=== PATIENT | male | born 1955 | race Caucasian/White ===

== ENCOUNTER 2017-12-07 08:52 | Day surgery (SDC) | payer BC, OTHER ==
[2017-12-01 15:49] VITALS: BMI 25.0
[~2017-12-07 08:52] MED LIST: LACTATED RINGERS 1,000 ML IV SCH
[2017-12-07 09:16] VITALS: RESP 16; TEMP 97.9
[2017-12-07] MEDS ORDERED: LIDOCAINE 1% 20 ML VIAL (10MG/ML) FOR IV START INTRADERMA ONE (09:22)
[2017-12-07] MEDS ORDERED: LIDOCAINE 1% INJ 10MG/ML (20 ML MDV) ONE (10:05)
[2017-12-07] MEDS ORDERED: PROPOFOL 10 MG/ML 20 ML VIAL IV ONE (10:05)
--- NOTE | 2017-12-07 10:33 | P.PCN ---
Date of Procedure: 12/07/17 Procedure(s) Performed: Procedure: Total colonoscopy. Preoperative diagnosis: Screening for neoplasia. Postoperative diagnosis: Sigmoid diverticulosis with no evidence of acute diverticulitis, strictures, polyps or cancer. Preparation: HalfLytely prep. Sedation: Was provided by anesthesia. Brief clinical history: The patient is 62-year-old male who is scheduled for this evaluation for screening for neoplasia because of history of polyps in addition to age as risk factor. The patient's prior exam around 7 years ago. He has no abdominal complaints, bleeding or anemia. Procedure: With the patient on his left lateral decubitus position and after informed consent and adequate sedation, the perianal area was inspected and it did not show any fissures or fistulas. There were no masses felt on digital rectal examination. The Olympus CFQ 160L videocolonoscope was then inserted in the rectum in the usual fashion and advanced to the cecum. There were several diverticular orifices noted scattered in the sigmoid with no evidence of acute diverticulitis or strictures. No polyps or tumors were seen. I retroflexed the endoscope in the rectum before the endoscope was withdrawn. The patient tolerated the procedure well. Plan: The patient was reassured. Discussed dietary measures. He will follow up with you as planned and I recommended repeat exam in 5 years.
[2017-12-07 10:52] VITALS: BP 133/82; PULSE 53
== END 2017-12-07 11:05 | disposition home or self-care (01) ==
LOC: ORWHC2ENDO 08:52
DX: Z12.11 Encounter for screening for malignant neoplasm of colon (principal); K57.30 Diverticulosis of large intestine without perforation or abscess without bleeding; Z86.010 Personal history of colon polyps; K21.9 Gastro-esophageal reflux disease without esophagitis; I10 Essential (primary) hypertension; E78.5 Hyperlipidemia, unspecified; Z72.0 Tobacco use; Z79.899 Other long term (current) drug therapy
CPT/HCPCS: J2001; J2704; G0105; 45378

== ENCOUNTER → 2023-02-07 | Outpatient (CLI) | payer MEDICARE ==
--- NOTE | 2023-02-09 12:57 | MR ---
EXAMINATION TYPE: MR shoulder RT wo con DATE OF EXAM: 02/07/2023 COMPARISON: Outside right shoulder x-ray January 27, 2023 HISTORY: Right shoulder pain with difficulty raising arm overhead since April TECHNIQUE: Multiplanar, multisequence imaging of the right shoulder is performed without contrast. FINDINGS: Rotator Cuff: Slight increased signal in the distal supraspinatus tendon with some adjacent fluid. Le ss prominent increased signal in the distal infraspinatus tendon. Intact subscapularis tendon. Rotato r cuff muscle bulk is preserved. Acromioclavicular Joint: Moderate to severe narrowing with moderate capsular hypertrophy. Loss of und erlying fat plane sagittal image 14 and coronal image 16. Mild spurring. Glenohumeral Joint: Small to moderate-sized joint effusion. No significant spurring. Bony projection from the anterior medial aspect of the humeral head. Labrum: The labrum appears grossly intact given limitation of non-arthrogram study. Biceps Tendon: The long head of biceps is in normal location within bicipital groove. Bone marrow signal: Tiny subchondral cystic change involving the medial humeral head and the superior lateral humeral head. Other: No additional significant abnormality is appreciated. IMPRESSION: 1. Tendinosis of the supraspinatus and to lesser degree the infraspinatus tendons. No significant tea ring. 2. AC joint arthropathy with suggestion of underlying impingement. Correlate clinically.
== END | disposition home or self-care (01) ==
LOC: RADMRIMAIN 19:05
PROVIDERS: ATTEND Orthopaedic Surgery
DX: M19.011 Primary osteoarthritis, right shoulder (principal); M67.813 Other specified disorders of tendon, right shoulder

== ENCOUNTER → 2023-03-06 | Outpatient (CLI) | payer MEDICARE ==
[2023-03-06 15:51] LABS: Anion Gap 16.6 mmol/L (4.00-12.00); Carbon Dioxide 22.4 mmol/L (21.6-31.8); Potassium 3.8 mmol/L (3.5-5.5)
[2023-03-06 16:19] LABS: Basophils # (A) 0.04 X 10*3/uL (0.00-0.10); Basophils % (A) 0.7 %; Eosinophils # (A) 0.05 X 10*3/uL (0.04-0.35); Eosinophils % (A) 0.8 %; HCT 46.9 % (39.6-50.0); HGB 16.2 g/dL (13.0-17.0); Lymphocytes # (A) 1.37 X 10*3/uL (0.90-5.00); Lymphocytes % (A) 23.2 %; MCH 33.5 pg (27.0-32.0); MCHC 34.5 g/dL (32.0-37.0); MCV 96.9 FL (80.0-97.0); Mean Platelet Volume 9.9 FL (9.5-12.2); Monocytes # (A) 0.79 X 10*3/uL (0.20-1.00); Monocytes % (A) 13.4 %; NRBC Per 100 WBC 0 X 10*3/uL (0.00-0.01); Neutrophils # (A) 3.62 X 10*3/uL (1.80-7.70); Neutrophils % (A) 61.4 %; Platelet Count 215 X 10*3/uL (140-440); RBC 4.84 X 10*6/uL (4.40-5.60); RDW 13.2 % (11.5-14.5)
== END | disposition home or self-care (01) ==
LOC: LABWHC1 07:53
PROVIDERS: ATTEND Orthopaedic Surgery
DX: Z01.812 Encounter for preprocedural laboratory examination (principal); M75.41 Impingement syndrome of right shoulder
CPT/HCPCS: 36415; 80051; 85025; 93005

== ENCOUNTER 2023-05-04 06:17 | Day surgery (SDC) | payer MEDICARE ==
[2023-04-28 11:20] VITALS: BMI 28.0
[~2023-05-04 06:17] MED LIST changes: -LACTATED RINGERS 1,000 ML IV SCH; +SODIUM CHLORIDE 0.9% 1,000 ML IV SCH
[2023-05-04] MEDS ORDERED: LIDOCAINE 1% (10MG/ML) FOR IV START INTRADERMA PRN (06:33)
[2023-05-04] MEDS ORDERED: LACTATED RINGERS 1,000 ML IV SCH (06:33)
[2023-05-04] MEDS ORDERED: SODIUM CHLORIDE 0.9% 500 ML 500 ML IV ONE (07:10)
[2023-05-04] MEDS ORDERED: PROPOFOL 10 MG/ML 20 ML VIAL IV ONE (07:25)
[2023-05-04] MEDS ORDERED: LIDOCAINE 1% INJ 10MG/ML (20 ML MDV) ONE (07:25)
[2023-05-04] MEDS ORDERED: BENZOCAINE SPRAY 1 CAN TOPICAL ONE ×2 (07:35→08:01)
[2023-05-04 07:43] VITALS: TEMP 97.1
[2023-05-04] MEDS ORDERED: SODIUM CHLORIDE 0.9% 1,000 ML IV SCH (09:00)
[2023-05-04 11:17] VITALS: BP 127/82; PULSE 62; RESP 16
--- NOTE | 2023-05-04 11:55 | ECHOT ---
TRANSESOPHAGEAL ECHOCARDIOGRAM INDICATIONS: Persistent atrial fibrillation. To rule out intracardiac thrombus prior to cardioversion. PROCEDURE NOTE: After obtaining informed consent, transesophageal echocardiogram was performed in left lateral position using an Omniplane probe. Local and IV sedation were obtained by the tissue coordinator. The patient tolerated the procedure well without any obvious immediate complications. FINDINGS: 1. There is no intracardiac thrombus within the left atrial appendage, left atrium, right atrium, right ventricle, left ventricle. 2. Left ventricle has normal size, shows diffuse global hypokinesis with diminished LV systolic function with an ejection fraction of 40%. 3. Left atrium appears mildly enlarged. 4. Right atrium, right ventricle seen within normal limits. There is mild mitral and tricuspid regurgitation noted. 5. Interatrial septum, there is no evidence of [id number] shunt by color-flow Doppler or gbqau-[id number] shunt by agitated saline contrast study. Aortic valve is a 3-leaflet valve. There is no evidence of regurgitation, aortic root measures within normal limits. PLAN: Patient will proceed with cardioversion. MMODL / IJN: [id number] /
--- NOTE | 2023-05-08 13:31 | PCN ---
PROCEDURE NOTE INDICATIONS: Persistent atrial fibrillation. FINDINGS: After obtaining informed consent making sure the patient is adequately anticoagulated with Eliquis and ruling out intracardiac thrombus with transesophageal echo, I proceeded with cardioversion. Initially attempted cardioversion with 150 joules of synchronized DC current. I was unsuccessful, went on to deliver 200 joules of synchronized current following which the patient converted to sinus rhythm. He will continue current medications and follow up with me in a week's time. ABEBE / SAMMYN: [id number] /
== END 2023-05-04 10:40 | disposition home or self-care (01) ==
LOC: OR 06:17
PROVIDERS: ATTEND Internal Medicine Cardiovascular Disease
DX: I08.1 Rheumatic disorders of both mitral and tricuspid valves (principal); I48.19 Other persistent atrial fibrillation; I10 Essential (primary) hypertension; E78.5 Hyperlipidemia, unspecified; J30.2 Other seasonal allergic rhinitis; Z85.828 Personal history of other malignant neoplasm of skin; F41.9 Anxiety disorder, unspecified; F32.A Depression, unspecified; Z86.010 Personal history of colon polyps; Z79.01 Long term (current) use of anticoagulants; Z79.899 Other long term (current) drug therapy
CPT/HCPCS: 93312; 93320; 93325; 92960; J2001; J2704

== ENCOUNTER 2023-07-06 23:44 | Emergency (ER) | payer MEDICARE ==
[2023-07-07 00:10] VITALS: RESP 18; TEMP 97.5
[2023-07-07] MEDS: SODIUM CHLORIDE 0.9% 1,000 ML IV STA (00:29)
[2023-07-07 00:40] LABS: Basophils % (A) 1 %; Eosinophils # (A) 0.2 k/uL (0-0.7); Eosinophils % (A) 3 %; HCT 43.3 % (39.0-53.0); HGB 14.5 gm/dL (13.0-17.5); Lymphocytes # (A) 1.7 k/uL (1.0-4.8); Lymphocytes % (A) 37 %; MCH 33.3 pg (25.0-35.0); MCHC 33.4 g/dL (31.0-37.0); MCV 99.6 fL (80.0-100.0); Mean Platelet Volume 6.9; Monocytes # (A) 0.3 k/uL (0-1.0); Monocytes % (A) 7 %; Neutrophils # (A) 2.2 k/uL (1.3-7.7); Neutrophils % (A) 49 %; Platelet Count 183 k/uL (150-450); RBC 4.35 m/uL (4.30-5.90); RDW 12.2 % (11.5-15.5); WBC 4.5 k/uL (3.8-10.6)
[2023-07-07 00:54] LABS: ALT 34 U/L (4-49); AST 36 U/L (17-59); African American GFR (CKD) >90 (>60 ml/min/1.73 sqM); Alkaline Phosphatase 69 U/L (38-126); Anion Gap 10 mmol/L; Blood Urea Nitrogen 12 mg/dL (9-20); Calcium 8.9 mg/dL (8.4-10.2); Carbon Dioxide 22 mmol/L (22-30); Chloride 96 mmol/L (98-107); Glucose 88 mg/dL (74-99); Non-African American GFR(CKD) >90 (>60 ml/min/1.73 sqM); Potassium 4.2 mmol/L (3.5-5.1); Sodium 128 mmol/L (137-145); Total Bilirubin 0.7 mg/dL (0.2-1.3); Total Protein 6.7 g/dL (6.3-8.2)
--- NOTE | 2023-07-07 00:57 | XR ---
EXAMINATION TYPE: XR chest 2V DATE OF EXAM: 07/07/2023 COMPARISON: NONE HISTORY: Syncope. Positive EtOH. TECHNIQUE: Frontal and lateral views of the chest are obtained. FINDINGS: There is no focal air space opacity, pleural effusion, or pneumothorax seen. The cardiac silhouette size is within normal limits. The osseous structures are intact. Overlying EKG leads are present. IMPRESSION: No acute cardiopulmonary process.
[2023-07-07 00:58] LABS: Partial Thromboplastin Time 27.6 sec (22.0-30.0); Prothrombin Time 11.1 sec (10.0-12.5)
[2023-07-07 01:04] LABS: Alcohol 126 mg/dL
--- NOTE | 2023-07-07 01:40 | ED ---
General Adult HPI - General Chief complaint: Syncope Stated complaint: Fall Time Seen by Provider: 07/07/23 00:13 Source: EMS Mode of arrival: EMS - History of Present Illness Initial comments: This is a pleasant 68-year-old male who presents the ER today for evaluation of lightheadedness. Patient states he got up to let his dogs out to use the restroom, they came back in he was wearing his socks and leaning up against the counter when his leg seemed to slide out from underneath him. Patient states he fell to the ground landing on his buttocks in a sitting position. He was feeling little lightheaded family decided to call to have him evaluated at the hospital. Patient did undergo cardiac ablation about a month ago due to persistent atrial fibrillation. - Related Data Home Medications Medication Instructions Recorded Confirmed ALPRAZolam [Xanax] 0.5 mg PO HS PRN 12/01/17 05/04/23 Atorvastatin [Lipitor] 10 mg PO DAILY 12/01/17 05/04/23 Ranitidine HCl [Zantac] 150 mg PO DAILY PRN 12/01/17 05/04/23 Citalopram Hydrobromide [CeleXA] 20 mg PO DAILY 03/17/23 05/04/23 Loratadine [Claritin] 10 mg PO DAILY PRN 03/17/23 05/04/23 Losartan-Hctz 50-12.5 mg [Hyzaar 1 tab PO DAILY 03/17/23 05/04/23 50-12.5] Pantoprazole [Protonix] 40 mg PO DAILY 03/17/23 05/04/23 Sucralfate [Carafate] 1 gm PO DAILY 03/17/23 05/04/23 Unk Salt Tablets Otc 394 mg PO DAILY 03/17/23 05/04/23 Apixaban [Eliquis] 5 mg PO BID 04/28/23 05/04/23 Previous Rx's Medication Instructions Recorded Metoprolol Tartrate [Lopressor] 25 mg PO BID #60 tab 05/04/23 Allergies Allergy/AdvReac Type Severity Reaction Status Date / Time No Known Allergies Allergy Verified 07/07/23 00:05 Review of Systems ROS Statement: Those systems with pertinent positive or pertinent negative responses have been documented in the HPI. ROS Other: All systems not noted in ROS Statement are negative. Past Medical History Past Medical History: Atrial Fibrillation, Cancer, GERD/Reflux, Hyperlipidemia, Hypertension Additional Past Medical History / Comment(s): Hx colon polyps, seasonal allergies, hx skin cancer(removed), right shoulder and neck pain, back issues after falls on black ice. History of Any Multi-Drug Resistant Organisms: None Reported Past Surgical History: Orthopedic Surgery Additional Past Surgical History / Comment(s): Left wrist repair with steel plate, repair of detached retina left eye, colonoscopy, EGD. Past Anesthesia/Blood Transfusion Reactions: No Reported Reaction Past Psychological History: Anxiety, Depression Smoking Status: Current every day smoker Past Alcohol Use History: Occasional Past Drug Use History: None Reported - Past Family History Mother Family Medical History: Cancer Additional Family Medical History / Comment(s): Brain cancer. General Exam - General Exam Comments Initial Comments: Physical Exam GENERAL: Patient is well-developed and well-nourished. Patient is nontoxic and well-hydrated and is in no distress. HENT: Normocephalic, Atraumatic. EYES: PERRL, EOMI PULMONARY: Unlabored respirations. CARDIOVASCULAR: Bradycardic, regular Warm and well perfused extremities ABDOMEN: Non-distended SKIN: No rashes or bruising : Deferred NEUROLOGIC: Alert and oriented Normal speech Normal gait MUSCULOSKELETAL: Moving all extremities with no apparent injury PSYCHIATRIC: No SI/HI Course Vital Signs 07/06/23 07/07/23 07/07/23 23:48 01:12 01:56 Temperature 97.5 F L Pulse Rate 51 L 53 L 53 L Respiratory 18 18 18 Rate Blood Pressure 93/62 96/59 110/78 O2 Sat by Pulse 93 L 93 L 96 Oximetry 07/07/23 03:22 Temperature Pulse Rate 59 L Respiratory 18 Rate Blood Pressure 123/77 O2 Sat by Pulse 96 Oximetry EKG Findings - EKG Comments: EKG Findings:: EKG interpreted by me, EKG obtained due to bradycardia EKG obtained at 12:29 AM rate is 50 rhythm is sinus bradycardia with prolonged QT T, CA 179, QRS 109, QTc 475. No acute ST elevations or depressions no evidence of acute ischemia or infarction. When EKG was compared to last month, no significant change and patient was bradycardic at that time as well. Medical Decision Making - Medical Decision Making Was pt. sent in by a medical professional or institution (, PA, APPRAISER AUDITOR, urgent care, hospital, or jail...) When possible be specific @ -No Did you speak to anyone other than the patient for history (EMS, parent, family, police, friend...)? What history was obtained from this source @ -No Did you review nursing and triage notes (agree or disagree)? Why? @ -I reviewed and agree with nursing and triage notes Were old charts reviewed (outside hosp., previous admission, EMS record, old EKG, old radiological studies, urgent care reports/EKG's, jail records)? Report findings @ -Previous EKGs reviewed Differential Diagnosis (chest pain, altered mental status, abdominal pain women, abdominal pain men, vaginal bleeding, weakness, fever, dyspnea, syncope, headache, dizziness, GI bleed, back pain, seizure, CVA, palpatations, mental health)? @ -Differential syncope EKG interpreted by me (3pts min.). @ -As above X-rays interpreted by me (1pt min.). @ -Chest x-ray with no acute process CT interpreted by me (1pt min.). @ -None done U/S interpreted by me (1pt. min.). @ -None done What testing was considered but not performed or refused? (CT, X-rays, U/S, labs)? Why? @ -None What meds were considered but not given or refused? Why? @ -None Did you discuss the management of the patient with other professionals (professionals i.e. , PA, APPRAISER AUDITOR, lab, RT, psych nurse, certified social workers in health care, armored car messenger, teacher, disabilities services officer, case making machine operator)? Give summary @ -No Was smoking cessation discussed for >3mins.? @ -No Was critical care preformed (if so, how long)? @ -No Were there social determinants of health that impacted care today? How? (Homelessness, low income, unemployed, alcoholism, drug addiction, transportation, low edu. Level, literacy, decrease access to med. care, [facility], rehab)? @ -No Was there de-escalation of care discussed even if they declined (Discuss DNR or withdrawal of care, Hospice)? DNR status @ -No What co-morbidities impacted this encounter? (DM, HTN, Smoking, COPD, CAD, Cancer, CVA, ARF, Chemo, Hep., AIDS, mental health diagnosis, sleep apnea, morbid obesity)? @ -None Was patient admitted / discharged? Hospital course, mention meds given and route, prescriptions, significant lab abnormalities, going to OR and other pertinent info. @ -Patient was seen and evaluated, history was obtained from the patient. Hermelinda saini had lightheadedness and generalized weakness slid to the ground did not fall did not hit his head. Labs were obtained patient was noted to be bradycardic and hypotensive. Patient was treated with IV fluids. Upon reevaluation patient's blood pressure had improved patient was feeling better co mfortable plan for discharge home. Patient to follow-up with motion graphics designer regarding medications that may be causing his bradycardia and hypotension. Undiagnosed new problem with uncertain prognosis? @ -No Drug Therapy requiring intensive monitoring for toxicity (Heparin, Nitro, Insulin, Cardizem)? @ -No Were any procedures done? @ -No Diagnosis/symptom? @ -Orthostatic hypotension Acute, or Chronic, or Acute on Chronic? @ -Acute Uncomplicated (without systemic symptoms) or Complicated (systemic symptoms)? @ -Complicated Side effects of treatment? @ -No Exacerbation, Progression, or Severe Exacerbation? @ -No Poses a threat to life or bodily function? How? (Chest pain, USA, IA, pneumonia, PE, COPD, DKA, ARF, appy, cholecystitis, CVA, Diverticulitis, Homicidal, Suicidal, threat to staff... and all critical care pts) @ -Unlikely - Lab Data Result diagrams: 07/07/23 00:31 07/07/23 00:31 Lab Results 07/07/23 07/07/23 07/07/23 Range/Units 00:31 00:31 00:31 WBC 4.5 (3.8-10.6) k/uL RBC 4.35 (4.30-5.90) m/uL Hgb 14.5 (13.0-17.5) gm/dL Hct 43.3 (39.0-53.0) % MCV 99.6 (80.0-100.0) fL MCH 33.3 (25.0-35.0) pg MCHC 33.4 (31.0-37.0) g/dL RDW 12.2 (11.5-15.5) % Plt Count 183 (150-450) k/uL MPV 6.9 Neutrophils % 49 % Lymphocytes % 37 % Monocytes % 7 % Eosinophils % 3 % Basophils % 1 % Neutrophils # 2.2 (1.3-7.7) k/uL Lymphocytes # 1.7 (1.0-4.8) k/uL Monocytes # 0.3 (0-1.0) k/uL Eosinophils # 0.2 (0-0.7) k/uL Basophils # 0.0 (0-0.2) k/uL PT 11.1 (10.0-12.5) sec INR 1.0 (<1.2) APTT 27.6 (22.0-30.0) sec Sodium 128 L (137-145) mmol/L Potassium 4.2 (3.5-5.1) mmol/L Chloride 96 L (98-107) mmol/L Carbon Dioxide 22 (22-30) mmol/L Anion Gap 10 mmol/L BUN 12 (9-20) mg/dL Creatinine 0.74 (0.66-1.25) mg/dL Est GFR (CKD-EPI)AfAm >90 (>60 ml/min/1.73 sqM) Est GFR (CKD-EPI)NonAf >90 (>60 ml/min/1.73 sqM) Glucose 88 (74-99) mg/dL Calcium 8.9 (8.4-10.2) mg/dL Magnesium 2.0 (1.6-2.3) mg/dL Total Bilirubin 0.7 (0.2-1.3) mg/dL AST 36 (17-59) U/L ALT 34 (4-49) U/L Alkaline Phosphatase 69 (38-126) U/L Troponin I (0.000-0.034) ng/mL Total Protein 6.7 (6.3-8.2) g/dL Albumin 4.0 (3.5-5.0) g/dL Serum Alcohol 126 mg/dL 07/07/23 Range/Units 00:31 WBC (3.8-10.6) k/uL RBC (4.30-5.90) m/uL Hgb (13.0-17.5) gm/dL Hct (39.0-53.0) % MCV (80.0-100.0) fL MCH (25.0-35.0) pg MCHC (31.0-37.0) g/dL RDW (11.5-15.5) % Plt Count (150-450) k/uL MPV Neutrophils % % Lymphocytes % % Monocytes % % Eosinophils % % Basophils % % Neutrophils # (1.3-7.7) k/uL Lymphocytes # (1.0-4.8) k/uL Monocytes # (0-1.0) k/uL Eosinophils # (0-0.7) k/uL Basophils # (0-0.2) k/uL PT (10.0-12.5) sec INR (<1.2) APTT (22.0-30.0) sec Sodium (137-145) mmol/L Potassium (3.5-5.1) mmol/L Chloride (98-107) mmol/L Carbon Dioxide (22-30) mmol/L Anion Gap mmol/L BUN (9-20) mg/dL Creatinine (0.66-1.25) mg/dL Est GFR (CKD-EPI)AfAm (>60 ml/min/1.73 sqM) Est GFR (CKD-EPI)NonAf (>60 ml/min/1.73 sqM) Glucose (74-99) mg/dL Calcium (8.4-10.2) mg/dL Magnesium (1.6-2.3) mg/dL Total Bilirubin (0.2-1.3) mg/dL AST (17-59) U/L ALT (4-49) U/L Alkaline Phosphatase (38-126) U/L Troponin I <0.012 (0.000-0.034) ng/mL Total Protein (6.3-8.2) g/dL Albumin (3.5-5.0) g/dL Serum Alcohol mg/dL Disposition Clinical Impression: Dehydration, Orthostatic hypotension Disposition: HOME SELF-CARE Condition: Good Is patient prescribed a controlled substance at d/c from ED?: No Referrals: Shashi Yarbrough MD [Primary Care Provider] - 1-2 days
[2023-07-07] MEDS: SODIUM CHLORIDE 0.9% 1,000 ML IV ONE (02:02)
[2023-07-07 03:31] VITALS: BP 123/77; PULSE 59
== END 2023-07-07 04:00 | disposition home or self-care (01) ==
LOC: EC 23:44
DX: E86.0 Dehydration (principal); I95.1 Orthostatic hypotension; F17.200 Nicotine dependence, unspecified, uncomplicated
CPT/HCPCS: 36415; 93005; 80053; 83735; 84484; 85025; 85610; 85730; 71046; 99285; 96360; 96361 ×2; G0480; 80320

== ENCOUNTER → 2023-07-24 | Outpatient (CLI) | payer MEDICARE ==
[2023-07-24 11:19] LABS: Basophils # (A) 0.05 X 10*3/uL (0.00-0.10); Basophils % (A) 0.7 %; Eosinophils # (A) 0.05 X 10*3/uL (0.04-0.35); Eosinophils % (A) 0.7 %; HCT 45.3 % (39.6-50.0); HGB 15.4 g/dL (13.0-17.0); Lymphocytes # (A) 1.85 X 10*3/uL (0.90-5.00); Lymphocytes % (A) 24.7 %; Mean Platelet Volume 8.9 FL (9.5-12.2); Monocytes # (A) 0.72 X 10*3/uL (0.20-1.00); Monocytes % (A) 9.6 %; NRBC Per 100 WBC 0 X 10*3/uL (0.00-0.01); Neutrophils # (A) 4.77 X 10*3/uL (1.80-7.70); Neutrophils % (A) 63.6 %; Platelet Count 212 X 10*3/uL (140-440); RBC 4.67 X 10*6/uL (4.40-5.60); RDW 12.3 % (11.5-14.5); WBC 7.49 X 10*3/uL (4.50-10.00)
[2023-07-24 11:32] LABS: BUN/Creat Ratio 11.73 Ratio (12.00-20.00); Blood Urea Nitrogen 12.9 mg/dL (9.0-27.0); Calcium 9.9 mg/dL (8.7-10.3); Carbon Dioxide 24.5 mmol/L (21.6-31.8); Chloride 92 mmol/L (96-109); Glucose 122 mg/dL (70-110); Potassium 4.4 mmol/L (3.5-5.5); Sodium 131 mmol/L (135-145)
== END | disposition home or self-care (01) ==
LOC: LABPAT 07:42
PROVIDERS: ATTEND Orthopaedic Surgery
DX: Z01.812 Encounter for preprocedural laboratory examination (principal); M75.41 Impingement syndrome of right shoulder
CPT/HCPCS: 36415; 80048; 85025

== ENCOUNTER 2023-08-02 05:58 | Day surgery (SDC) | payer MEDICARE ==
--- NOTE | 2023-08-01 09:57 | HP ---
HISTORY AND PHYSICAL DATE OF SURGERY: 08/02/2023. HISTORY OF PRESENT ILLNESS: Jake Navarro is a 68-year-old gentleman seen with progressive right shoulder pain. We discussed options regarding treatment. He elected to proceed with right shoulder arthroscopy. Consent regarding the procedure was obtained. Cardiac clearance was provided by Dr. Arreaga. PAST MEDICAL HISTORY: Hypertension, hyperlipidemia, cardiovascular disease. PAST SURGICAL HISTORY: Noncontributory. DAILY MEDICATIONS: 1. Losartan. 2. Pantoprazole. ALLERGIES: None. SOCIAL HISTORY: He smokes tobacco. PHYSICAL EVALUATION OF THE RIGHT SHOULDER: Flexion is 150 degrees. Abduction is 120 degrees. External rotation is 40 degrees with pain and weakness. He is tender along the anterolateral acromion and rotator cuff insertion site. Impingement is positive at 90 degrees. Drop-arm sign is positive. Cross-body adduction sign is positive. Distal neurovascular exam is intact IMAGING STUDIES: Right shoulder radiographs revealed a type 2 acromion, severe acromioclavicular joint osteoarthritis, and cystic changes of the tuberosity. Right shoulder MRI revealed impingement, acromioclavicular joint osteoarthritis, and partial rotator cuff tendon tear. IMPRESSION: 1. Right shoulder impingement with partial rotator cuff tear. 2. Right shoulder acromioclavicular joint osteoarthritis. 3. Hypertension. 4. Gastroesophageal reflux disease. 5. Cardiovascular disease. PLAN: Right shoulder arthroscopy with subacromial decompression, arthroscopic rotator cuff repair, Mikael procedure and debridement. MMODL / IJN: [id number] /
[2023-08-02] MEDS ORDERED: droPERidol 5 MG/2 ML VIAL IVP ONE (06:00)
[2023-08-02] MEDS ORDERED: LIDOCAINE 1% (10MG/ML) FOR IV START INTRADERMA PRN (06:00)
[2023-08-02] MEDS: LACTATED RINGERS 1,000 ML IV SCH (06:16)
[2023-08-02] MEDS: DEXAMETHASONE SOD PHOSPHATE 4 MG/ML 1 ML VIAL IV ONE (06:43)
[2023-08-02] MEDS: ONDANSETRON 4 MG/2 ML VIAL IVP ONE (06:43)
[2023-08-02] MEDS: fentaNYL (PF) 50 MCG/1 ML VIAL IVP ONE (06:49)
[2023-08-02] MEDS: MIDAZOLAM 2 MG/2 ML VIAL IVP ONE (06:49)
[2023-08-02] MEDS ORDERED: HYDROmorphone 0.5 MG/0.5 ML SYRINGE IVP PRN (07:00)
--- NOTE | 2023-08-02 07:06 | P.ANPRN ---
Procedure Note - Anesthesia - Nerve Block Performed Right Interscalene Single Time Out Performed: Yes Date of Procedure: 08/02/23 Procedure Start Time: 06:48 Procedure Stop Time: 06:57 Location of Patient: PreOp Indication: Acute Post-Operative Pain, Requested by Surgeon Sedation Type: Sedate with meaningful contact maintained Preparation: Sterile Prep Position: Supine Needle Types: Pajunk Needle Gauge: 21 Ultrasound used to visualize needle placement: Yes Ultrasound used to observe medication spread: Yes Injectate: 0.5% Ropivacaine (see comment for volume) (25 mL +4 mg of dexamethasone) Blood Aspirated: No Pain Paresthesia on Injection Noted: No Resistance on Injection: Normal Image Stored and Saved: Yes Events: Uneventful and Well Tolerated
[2023-08-02 07:18] VITALS: RESP 16
[2023-08-02] MEDS ORDERED: SUCCINYLCHOLINE CHLORIDE 200 MG/10 ML VIAL IV ONE (07:20)
[2023-08-02] MEDS ORDERED: MIDAZOLAM 2 MG/2 ML VIAL ONE (07:20)
[2023-08-02] MEDS ORDERED: ROPIVACAINE 5 MG/ML 30 ML VIAL ONE (07:20)
[2023-08-02] MEDS ORDERED: ePHEDrine 50 MG/ML 1 ML VIAL ONE (07:20)
[2023-08-02] MEDS ORDERED: LIDOCAINE 1% INJ 10MG/ML (20 ML MDV) ONE (07:20)
[2023-08-02] MEDS ORDERED: PROPOFOL 10 MG/ML 20 ML VIAL IV ONE (07:20)
[2023-08-02] MEDS ORDERED: fentaNYL (PF) 50 MCG/ML 2 ML AMP ONE (07:20)
[2023-08-02] MEDS ORDERED: DEXAMETHASONE SOD PHOSPHATE 4 MG/ML 1 ML VIAL ONE (07:20)
--- NOTE | 2023-08-02 09:36 | P.OP ---
Date of Procedure: 08/02/23 Preoperative Diagnosis: Right shoulder impingement Postoperative Diagnosis: 1. Right shoulder rotator cuff tear 2. Right shoulder bicipital tendinitis 3. Right shoulder impingement 4. Right shoulder acromioclavicular joint osteoarthritis 5. Right shoulder superficial labral tear Procedure(s) Performed: 1. Right shoulder arthroscopic rotator cuff repair 2. Right shoulder arthroscopic biceps tenodesis 3. Right shoulder arthroscopic subacromial decompression 4. Right shoulder arthroscopic Mikael procedure 5. Right shoulder arthroscopic debridement labral tear Implants: 5Arthrex 4.75 swivel lock anchors Anesthesia: GETA, regional (Interscalene block) Surgeon: Bakari Narvaez Input Output Clerk #1: Robby Dorado Estimated Blood Loss (ml): 10 Pathology: none sent Condition: stable Disposition: PACU Indications for Procedure: 68-year-old patient seen with progressive right shoulder pain. After having treatment options discussed, he elected to proceed with arthroscopy. Operative Findings: See description of procedure Description of Procedure: Patient underwent an interscalene block by department of anesthesia. The patient was then taken to the operative suite. The patient underwent a general anesthetic by the department of anesthesia. The patient was placed into a lateral position and secured. There was appropriate padding of the bony prominence. Right shoulder was then prepped and draped in normal sterile orthopedic fashion. We placed the extremity in 10 pounds of longitudinal traction. A posterior incision was now made for a posterior working portal site. The trocar and cannula were inserted into the glenohumeral joint. Arthroscopy was initiated. Spinal needle was now inserted anteriorly, to ascertain the anterior working portal site. An incision was now made in that area, a trocar was inserted followed by a probe. There was superficial tearing of the superior labrum. There was hyperemia of the long head biceps tendon consistent with bicipital tendinitis. There was a large rotator cuff tendon tear present. I debrided out the superficial labral tear getting down to stable labral tissue. I decided to proceed with an arthroscopic biceps tenodesis. I introduced the cannula through my anterior portal site. I now passed a loop and tack type stitch through the long head biceps tendon. I released the long head biceps tendon from the superior labrum. With the assistance of Laz CONLEY I now punched a hole at the area of the interval for insertion of an anchor. The suture limb was passed through the eyelet of an Arthrex 4.75 swivel lock anchor. I placed the eyelet into the prepunched hole. I held in position while Laz CONLEY tensioned the suture and deployed the anchor with good fixation noted. The residual suture limb was now clipped. We had a stable appearing biceps tenodesis. Instruments were removed from the glenohumeral joint. Utilizing the posterior working portal site, the trocar and cannula were inserted into the subacromial space. Arthroscopy initiated. I made an incision 2 fingerbreadths lateral to the acromion. I introduced my trocar followed by my ArthroCare ablator. I now began ablating thick subacromial bursal tissue, which exposed the undersurface of the anterior acromion. There was diminished subacromial space. There was a very prominent anterior acromion. A motorized bur was introduced and a subacromial decompression was performed. I also excised some osteophytes off the inferior aspect of the distal clavicle. The AC joint was visualized and noted to be fairly arthritic. The motorized bur was introduced in the anterior portal site and a Mikael procedure was performed without difficulty removing 8 mm of bone off the distal clavicle, decompressing the AC joint nicely. I turned my attention to the rotator cuff. There was a 2.5 cm rotator cuff tear. I debrided the margins getting down to stable tendon tissue. The defect/tear measured nearly 3 cm and was freely mobile over the footprint. I introduced my motorized bur and abraded the footprint area, getting some petechial bleeding. I now made an accessory portal site off the lateral aspect of the acromion. I punched to holes medial for medial row fixation with the assistance of Laz CONLEY carefully tapping the punch with a mallet as I held the punch and the camera. I now introduced both anchors into the pre-punched holes and Laz CONLEY tapped them with the mallet as I held anchors and the camera. Laz CONLEY now screwed the anchors in place a while I held the anchor guide and camera. All 8 limbs of suture were now passed through good bites of rotator cuff tendon. I now punched 2 holes for lateral row fixation again I held the punch and camera while Laz CONLEY used a mallet to tap in the punch. We now passed sutures through both anchors and individually I introduced the anchors into the pre-punch holes I held the anchor guide in position with one hand holding the camera with the other hand while Laz CONLEY tensioned the sutures and screwed in the anchors one at a time. All residual suture limbs were now clipped. We had good compression of the tendon along the entire footprint. Instruments now removed from the portal sites. All portal sites were approximated with nylon suture. Sterile dressings were applied followed by a shoulder immobilizer. Robby CONLEY assisted in this complex case. The patient was awakened, transferred to a bed, and taken to recovery in stable condition.
[2023-08-02 09:52] VITALS: TEMP 96.8
[2023-08-02 10:43] VITALS: BP 117/80; PULSE 77
== END 2023-08-02 10:58 | disposition home or self-care (01) ==
LOC: OR 05:58
PROVIDERS: ATTEND Orthopaedic Surgery
DX: M75.111 Incomplete rotator cuff tear or rupture of right shoulder, not specified as traumatic (principal); M75.41 Impingement syndrome of right shoulder; M19.011 Primary osteoarthritis, right shoulder; K21.9 Gastro-esophageal reflux disease without esophagitis; I25.10 Atherosclerotic heart disease of native coronary artery without angina pectoris; I10 Essential (primary) hypertension; G89.18 Other acute postprocedural pain; M75.21 Bicipital tendinitis, right shoulder; E78.5 Hyperlipidemia, unspecified; F17.200 Nicotine dependence, unspecified, uncomplicated; Z79.899 Other long term (current) drug therapy
CPT/HCPCS: 64415; 29824; 29826; 29827; 29828; C1713 ×4; J2250; J0330; J1100; J0690; J2405; J2001; J3010 ×2; J2795; J2704

== ENCOUNTER 2023-09-28 12:14 | Day surgery (SDC) | payer MEDICARE ==
[2023-09-25 15:50] VITALS: BMI 26.9
--- NOTE | 2023-09-27 23:13 | HP ---
HISTORY AND PHYSICAL DATE OF SCHEDULED SURGERY: 09/28/2023. HISTORY OF PRESENT ILLNESS: Jake Navarro is a 68-year-old gentleman seen with a persistent left elbow olecranon bursitis, which has failed conservative treatment measures. We discussed options. He elected to proceed with olecranon bursectomy. Consent was obtained. PAST MEDICAL HISTORY: Hypertension, gastroesophageal reflux disease. PAST SURGICAL HISTORY: Noncontributory. DAILY MEDICATIONS: None reported. SOCIAL HISTORY: He smokes cigarettes. PHYSICAL EVALUATION OF LEFT ELBOW: He has a large area of olecranon bursitis with no evidence of erythema or infective process. He has good range of motion of the elbow. His distal neurovascular exam is intact. IMAGING STUDIES: Radiographs of the left elbow failed to reveal any acute osseous abnormality. IMPRESSION: Left elbow olecranon bursitis. PLAN: Left elbow olecranon bursectomy. MMMARYL / IJN: [id number] /
[~2023-09-28 12:14] MED LIST changes: +HYDROmorphone 0.5 MG/0.5 ML SYRINGE IVP PRN; +LIDOCAINE 1% (10MG/ML) FOR IV START INTRADERMA PRN; -SODIUM CHLORIDE 0.9% 1,000 ML IV SCH; +fentaNYL (PF) 50 MCG/ML 2 ML AMP IVP PRN
[2023-09-28] MEDS: IV FLUID CONTINUATION 1,000 ML IV ONE (13:06)
[2023-09-28] MEDS: LACTATED RINGERS 1,000 ML IV SCH (13:07)
[2023-09-28] MEDS: DEXAMETHASONE SOD PHOSPHATE 4 MG/ML 1 ML VIAL IV ONE (13:10)
[2023-09-28] MEDS: ONDANSETRON 4 MG/2 ML VIAL IVP ONE (13:10)
[2023-09-28] MEDS: MIDAZOLAM 2 MG/2 ML VIAL IV PRN (13:47)
[2023-09-28] MEDS ORDERED: fentaNYL (PF) 50 MCG/ML 2 ML AMP ONE (14:08)
[2023-09-28] MEDS ORDERED: PROPOFOL 10 MG/ML 20 ML VIAL IV ONE (14:08)
[2023-09-28] MEDS ORDERED: MIDAZOLAM 2 MG/2 ML VIAL ONE (14:08)
[2023-09-28] MEDS ORDERED: HYDROmorphone (PF) 1 MG/ML ONE (14:08)
[2023-09-28 15:25] VITALS: TEMP 97.4
[2023-09-28 16:21] VITALS: BP 142/87; PULSE 87; RESP 16
--- NOTE | 2023-09-28 17:57 | P.OP ---
Date of Procedure: 09/28/23 Preoperative Diagnosis: Left elbow olecranon bursitis Postoperative Diagnosis: Left elbow olecranon bursitis Procedure(s) Performed: Left elbow olecranon bursectomy Anesthesia: [facility]ARRO Surgeon: Bakari Narvaez Engineer [employer] #1: Robby Dorado Estimated Blood Loss (ml): 6 Pathology: none sent Condition: stable Disposition: PACU Indications for Procedure: 68-year-old gentleman seen with persistent symptomatic left elbow olecranon bursitis. After having treatment options discussed, he elected to proceed with left elbow olecranon bursectomy. Operative Findings: See description of procedure Description of Procedure: The patient was taken to the operative suite. He received preoperative IV antibiotics. He underwent a general anesthetic by the department of anesthesia. A well-padded tourniquet was placed on the proximal left upper extremity. The left upper extremity was prepped and draped in normal sterile orthopedic fashion. The extremity was elevated and the tourniquet was insufflated to 250. I made a longitudinal incision over the olecranon bursa sharply through skin. We encountered some normal-appearing bursal fluid. We noted thick substantial significant bursal tissue. I now with the assistance of Laz CONLEY began meticulously performing a bursectomy. I now explored the entire wound and noted excision of all abnormal appearing bursal tissue. The wound was irrigated. Hemostasis achieved via electrocautery. Subcutaneous soft tissues repaired with 3-0 Vicryl tacking the subcutaneous tissues down to the periosteal tissue. The skin was approximate with a running subcuticular suture augmented with skin glue. The tourniquet was now released noting immediate capillary refill of the extremity. Sterile dressings were applied to include a sterile Darrion bandage. Th e patient was awakened, transferred to recovery in stable condition having tolerated the procedure well. Laz CONLEY assisted in all aspects of this procedure.
== END 2023-09-28 16:27 | disposition home or self-care (01) ==
LOC: OR 12:14
PROVIDERS: ATTEND Orthopaedic Surgery
DX: M70.22 Olecranon bursitis, left elbow (principal); I10 Essential (primary) hypertension; K21.9 Gastro-esophageal reflux disease without esophagitis; E78.5 Hyperlipidemia, unspecified; I48.91 Unspecified atrial fibrillation; F17.210 Nicotine dependence, cigarettes, uncomplicated; Z79.01 Long term (current) use of anticoagulants; Z79.899 Other long term (current) drug therapy; Z98.890 Other specified postprocedural states
CPT/HCPCS: 24105; J2250; J1100; J0690; J2405; J3010; J1170; J2704